=== PATIENT | male | born 1990 | race Caucasian/White ===

== ENCOUNTER 2017-08-26 21:42 | Emergency (ER) | payer MEDICAID, OTHER, SELFPAY ==
[~2017-08-26] VITALS: Ht 182.9 cm; Wt 89.6 kg
[2017-08-26 21:54] VITALS: BP 135/80
[2017-08-26] MEDS ORDERED: PROMETHAZINE 25 MG/ML, 1ML ONE (22:14)
[2017-08-26] MEDS ORDERED: KETOROLAC 30 MG/1 ML ONE (22:14)
[2017-08-26] MEDS ORDERED: ALBUTEROL/IPRATROPIUM 2.5MG/0.5MG, 3 ML ONE (22:28)
[2017-08-26] MEDS ORDERED: KETOROLAC 30 MG/1 ML IM ONE (22:30)
[2017-08-26] MEDS ORDERED: ALBUTEROL/IPRATROPIUM 2.5MG/0.5MG, 3 ML NPPB ONE (22:30)
[2017-08-26] MEDS ORDERED: PROMETHAZINE 25 MG/ML, 1ML IM ONE (22:30)
[2017-08-26 22:32] LABS: RAPID INFLUENZA A POSITIVE (Negative); RAPID INFLUENZA B Negative (Negative)
== END 2017-08-26 23:25 | disposition home or self-care (01) ==
LOC: ED 23:18
DX: J09.X2 Influenza due to identified novel influenza A virus with other respiratory manifestations (principal); J45.31 Mild persistent asthma with (acute) exacerbation
CPT/HCPCS: 71020; 87400; 94640; 96372; 99285; J1885; J2550; J7620

== ENCOUNTER 2017-09-16 02:37 | Emergency (ER) | payer MEDICAID ==
[~2017-09-16] VITALS: Ht 180.3 cm; Wt 87.7 kg
[2017-09-16 03:36] LABS: BASOPHILS # (AUTO) 0.05 x10^3/uL (0-0.1); BASOPHILS % (AUTO) 1 % (0-1); EOSINOPHILS # (AUTO) 0.21 x10^3/uL (0-0.4); EOSINOPHILS % (AUTO) 3 % (1-7); LYMPHOCYTES # (AUTO) 2.03 x10^3/uL (1-3.4); LYMPHOCYTES % (AUTO) 29 % (22-44); MD NO; MEAN CORPUSCULAR HEMOGLOBIN 29.2 pg (27.5-34.5); MEAN CORPUSCULAR HGB CONC 34.4 g/dL (33.2-36.2); MEAN PLATELET VOLUME 7.9 fL (7.4-10.4); MONOCYTES # (AUTO) 0.44 x10^3/uL (0.2-0.8); MONOCYTES % (AUTO) 6 % (2-9); NEUTROPHILS # (AUTO) 4.25 x10^3/uL (1.8-6.8); NEUTROPHILS % (AUTO) 61 % (42-75); PLATELET COUNT 213 x10^3/uL (130-400); RED BLOOD COUNT 5.83 x10^6/uL (4.38-5.82); RED CELL DISTRIBUTION WIDTH 14.1 % (9.4-14.8)
[2017-09-16 03:46] LABS: ALBUMIN 4.1 g/dL (3.4-5.0); ANION GAP 5 mmol/L (5-15); CALCIUM 8.9 mg/dL (8.5-10.1); CHLORIDE 105 mmol/L (98-107); CREATININE 0.99 mg/dL (0.7-1.3)
[2017-09-16 03:50] LABS: TROPONIN I < 0.015 ng/mL (0.000-0.045)
[2017-09-16 04:16] VITALS: BP 122/70
== END 2017-09-16 04:19 | disposition home or self-care (01) ==
LOC: ED 03:16
DX: R07.89 Other chest pain (principal)
CPT/HCPCS: 36415; 71046; 80048; 82040; 84484; 85025; 93005; 99285

== ENCOUNTER 2017-10-11 02:23 | Emergency (ER) | payer MEDICAID ==
[2017-10-11] MEDS ORDERED: LORazepam 1MG TABLET ONE (02:46)
[2017-10-11] MEDS ORDERED: LORazepam 1MG TABLET PO ONE (03:00)
[2017-10-11 03:12] VITALS: BP 156/91
== END 2017-10-11 03:15 | disposition home or self-care (01) ==
LOC: ED 02:52
DX: F41.1 Generalized anxiety disorder (principal); F15.10 Other stimulant abuse, uncomplicated; J45.909 Unspecified asthma, uncomplicated
CPT/HCPCS: 93005; 99284

== ENCOUNTER 2017-11-30 00:14 | Emergency (ER) | payer MEDICAID ==
[~2017-11-30] VITALS: Ht 182.9 cm; Wt 92.5 kg
[2017-11-30 00:16] VITALS: BP 123/76
== END 2017-11-30 01:22 | disposition home or self-care (01) ==
LOC: ED 01:00
DX: R07.9 Chest pain, unspecified (principal); J45.909 Unspecified asthma, uncomplicated; F41.9 Anxiety disorder, unspecified
CPT/HCPCS: 93005; 99283

== ENCOUNTER 2017-12-31 11:32 | Emergency (ER) | payer MEDICAID ==
[~2017-12-31] VITALS: Ht 182.9 cm; Wt 80.0 kg
[2017-12-31 11:35] VITALS: BP 122/69
== END 2017-12-31 13:07 | disposition left against medical advice (07) ==
LOC: ED 12:52
DX: R20.0 Anesthesia of skin (principal); G83.9 Paralytic syndrome, unspecified; Z53.21 Procedure and treatment not carried out due to patient leaving prior to being seen by health care provider
CPT/HCPCS: 93005

== ENCOUNTER 2018-03-25 03:14 | Emergency (ER) | payer MEDICAID ==
[~2018-03-25] VITALS: Ht 182.9 cm; Wt 90.0 kg
[2018-03-25 03:49] LABS: BASOPHILS # (AUTO) 0.05 x10^3/uL (0-0.1); BASOPHILS % (AUTO) 1 % (0-1); EOSINOPHILS # (AUTO) 0.29 x10^3/uL (0-0.4); EOSINOPHILS % (AUTO) 4 % (1-7); LYMPHOCYTES # (AUTO) 1.81 x10^3/uL (1-3.4); LYMPHOCYTES % (AUTO) 25 % (22-44); MD NO; MEAN CORPUSCULAR HEMOGLOBIN 29.5 pg (27.5-34.5); MEAN CORPUSCULAR HGB CONC 34.3 g/dL (33.2-36.2); MEAN CORPUSCULAR VOLUME 86.1 fL (81-97); MEAN PLATELET VOLUME 7.6 fL (7.4-10.4); MONOCYTES # (AUTO) 0.42 x10^3/uL (0.2-0.8); MONOCYTES % (AUTO) 6 % (2-9); NEUTROPHILS # (AUTO) 4.62 x10^3/uL (1.8-6.8); NEUTROPHILS % (AUTO) 64 % (42-75); PLATELET COUNT 196 x10^3/uL (130-400); RED BLOOD COUNT 5.69 x10^6/uL (4.38-5.82); RED CELL DISTRIBUTION WIDTH 13.6 % (9.4-14.8)
[2018-03-25 03:59] LABS: ALANINE AMINOTRANSFERASE 29 U/L (12-78); ALBUMIN 4.2 g/dL (3.4-5.0); ANION GAP 7 mmol/L (5-15); CALCIUM 8.6 mg/dL (8.5-10.1); CHLORIDE 107 mmol/L (98-107); CREATININE 0.92 mg/dL (0.7-1.3)
[2018-03-25] MEDS ORDERED: ONDANSETRON 2MG/ML, 2ML IVPush ONE (04:00)
[2018-03-25] MEDS ORDERED: SODIUM CHLORIDE 0.9% 1,000ML IVBOLUS ONE (04:00)
[2018-03-25 04:02] LABS: ALKALINE PHOSPHATASE 68 U/L (45-117); BILIRUBIN,TOTAL 0.7 mg/dL (0.2-1.0); TOTAL PROTEIN 7.7 g/dL (6.4-8.2)
[2018-03-25] MEDS ORDERED: ONDANSETRON 2MG/ML, 2ML ONE (04:27)
[2018-03-25 04:40] VITALS: BP 119/66
== END 2018-03-25 04:58 | disposition home or self-care (01) ==
LOC: ED 04:50
DX: F41.1 Generalized anxiety disorder (principal); R11.2 Nausea with vomiting, unspecified; J45.909 Unspecified asthma, uncomplicated; Z87.891 Personal history of nicotine dependence
CPT/HCPCS: 36415; 80053; 83690; 85025; 96361; 96374; 99284; J2405; J7030

== ENCOUNTER 2018-04-05 03:24 | Emergency (ER) | payer MEDICAID ==
[~2018-04-05] VITALS: Ht 180.3 cm; Wt 88.2 kg
[2018-04-05] MEDS ORDERED: ALBUTEROL SULFATE 2.5 MG/3 ML ONE (04:29)
[2018-04-05] MEDS ORDERED: ALBUTEROL SULFATE 2.5 MG/3 ML NPPB ONE (04:30)
[2018-04-05 04:51] VITALS: BP 104/59
== END 2018-04-05 05:19 | disposition home or self-care (01) ==
LOC: ED 03:45
DX: J45.31 Mild persistent asthma with (acute) exacerbation (principal); Z87.891 Personal history of nicotine dependence
CPT/HCPCS: 93005; 94640; 99283; J7512; J7613

== ENCOUNTER 2018-05-02 19:46 | Emergency (ER) | payer MEDICAID ==
[~2018-05-02] VITALS: Ht 180.3 cm; Wt 88.3 kg
[2018-05-02 20:09] VITALS: BP 146/99
[2018-05-02 20:43] LABS: BASOPHILS # (AUTO) 0.04 x10^3/uL (0-0.1); BASOPHILS % (AUTO) 1 % (0-1); EOSINOPHILS # (AUTO) 0.45 x10^3/uL (0-0.4); EOSINOPHILS % (AUTO) 7 % (1-7); LYMPHOCYTES # (AUTO) 2.06 x10^3/uL (1-3.4); LYMPHOCYTES % (AUTO) 32 % (22-44); MD NO; MEAN CORPUSCULAR HEMOGLOBIN 28.8 pg (27.5-34.5); MEAN CORPUSCULAR HGB CONC 33.7 g/dL (33.2-36.2); MEAN CORPUSCULAR VOLUME 85.3 fL (81-97); MEAN PLATELET VOLUME 7.5 fL (7.4-10.4); MONOCYTES # (AUTO) 0.45 x10^3/uL (0.2-0.8); MONOCYTES % (AUTO) 7 % (2-9); NEUTROPHILS # (AUTO) 3.54 x10^3/uL (1.8-6.8); NEUTROPHILS % (AUTO) 54 % (42-75); PLATELET COUNT 252 x10^3/uL (130-400); RED BLOOD COUNT 6.07 x10^6/uL (4.38-5.82); RED CELL DISTRIBUTION WIDTH 13.6 % (9.4-14.8)
[2018-05-02 20:50] LABS: ALBUMIN 4.2 g/dL (3.4-5.0); ANION GAP 5 mmol/L (5-15); CALCIUM 9.1 mg/dL (8.5-10.1); CHLORIDE 104 mmol/L (98-107); CREATININE 0.96 mg/dL (0.7-1.3)
== END 2018-05-02 22:00 | disposition home or self-care (01) ==
LOC: ED 21:54
DX: M79.1 Myalgia (principal); J45.909 Unspecified asthma, uncomplicated; M79.652 Pain in left thigh; M79.651 Pain in right thigh; M25.562 Pain in left knee; M25.561 Pain in right knee; M79.602 Pain in left arm
CPT/HCPCS: 36415; 80048; 82040; 85025; 99284

== ENCOUNTER 2018-05-08 20:52 | Emergency (ER) | payer MEDICAID ==
[~2018-05-08] VITALS: Ht 182.9 cm; Wt 88.7 kg
[2018-05-08 21:54] LABS: BASOPHILS # (AUTO) 0.05 x10^3/uL (0-0.1); BASOPHILS % (AUTO) 1 % (0-1); EOSINOPHILS # (AUTO) 0.25 x10^3/uL (0-0.4); EOSINOPHILS % (AUTO) 3 % (1-7); LYMPHOCYTES # (AUTO) 2.13 x10^3/uL (1-3.4); LYMPHOCYTES % (AUTO) 27 % (22-44); MD NO; MEAN CORPUSCULAR HEMOGLOBIN 29.6 pg (27.5-34.5); MEAN CORPUSCULAR HGB CONC 34.5 g/dL (33.2-36.2); MEAN PLATELET VOLUME 7.6 fL (7.4-10.4); MONOCYTES # (AUTO) 0.62 x10^3/uL (0.2-0.8); MONOCYTES % (AUTO) 8 % (2-9); NEUTROPHILS # (AUTO) 4.85 x10^3/uL (1.8-6.8); NEUTROPHILS % (AUTO) 61 % (42-75); PLATELET COUNT 230 x10^3/uL (130-400); RED BLOOD COUNT 5.49 x10^6/uL (4.38-5.82); RED CELL DISTRIBUTION WIDTH 13.7 % (9.4-14.8)
[2018-05-08 21:57] VITALS: BP 131/77
[2018-05-08 21:57] LABS: CHLORIDE 109 mmol/L (98-107)
[2018-05-08 21:58] LABS: ALANINE AMINOTRANSFERASE 24 U/L (12-78); ALBUMIN 3.7 g/dL (3.4-5.0); ANION GAP 4 mmol/L (5-15); CALCIUM 8.5 mg/dL (8.5-10.1); CREATININE 1.12 mg/dL (0.7-1.3)
[2018-05-08 22:00] LABS: ALKALINE PHOSPHATASE 77 U/L (45-117); BILIRUBIN,TOTAL 0.5 mg/dL (0.2-1.0); TOTAL PROTEIN 7.2 g/dL (6.4-8.2)
[2018-05-08 22:01] LABS: CULTURE INDICATED? NO; MICROSCOPIC NOT IND
== END 2018-05-08 22:43 | disposition home or self-care (01) ==
LOC: ED 22:14
DX: K59.00 Constipation, unspecified (principal); R10.32 Left lower quadrant pain; R10.12 Left upper quadrant pain
CPT/HCPCS: 36415; 74022; 80053; 80307; 81003; 83690; 85025; 99285

== ENCOUNTER 2018-06-16 11:51 | Emergency (ER) | payer MEDICAID ==
[~2018-06-16] VITALS: Ht 180.3 cm; Wt 89.3 kg
[2018-06-16 12:12] VITALS: BP 144/81
[2018-06-16] MEDS ORDERED: ALBU18HF INH (12:27)
[2018-06-16] MEDS ORDERED: SODIUM CHLORIDE FLUSH 10ML SYR IVF ONE (13:00)
[2018-06-16] MEDS ORDERED: SODIUM CHLORIDE 0.9% 1,000ML IVBOLUS ONE (13:00)
== END 2018-06-16 13:41 | disposition home or self-care (01) ==
LOC: ED 12:48
DX: R11.2 Nausea with vomiting, unspecified (principal); J45.909 Unspecified asthma, uncomplicated
CPT/HCPCS: 36415; 80047; 99284; J7030